=== PATIENT | female | born 1970 | race Caucasian/White ===

== ENCOUNTER 2019-03-03 17:20 | Outpatient (RCR) | payer OTHER, SELFPAY ==
--- NOTE | 2019-03-12 11:16 | PCPTNOTE ---
03/12/2019 Juanito Cuevas cancelled her appt today due to work. LJ
--- NOTE | 2019-03-26 10:07 | PCPTNOTE ---
03/26/19 - patient called an cancelled appointment this date due to having to take her mother to the doctor. MUKUND
--- NOTE | 2019-06-03 08:46 | PCPTNOTE ---
06/03/19 - patient has not been to therapy in several weeks or months. patient has been called and no return calls have been made to finish out the POC. as of this date, patient will be DC'd from skilled PT and all progress towards goals will be taken from the most recent evaluation/note. MUKUND
== END 2019-04-14 23:59 | disposition home or self-care (01) ==
LOC: CHSPT 17:20
PROVIDERS: PCP Internal Medicine; Visit Provider Internal Medicine
DX: M25.512 Pain in left shoulder (principal)
CPT/HCPCS: 97014; 97110; G0283

== ENCOUNTER 2019-08-04 09:46 | Outpatient (CLI) | payer OTHER, SELFPAY ==
[2019-08-04 10:00] LABS: Add Urine Microscopic? YES; Appearance Urine Cloudy (Clear); Bilirubin Urine Negative (Negative); Blood Urine Negative (Negative); Color Urine Yellow (Yellow); Glucose Urine UA Negative (Negative); Ketones Urine Negative (Negative); Leukocyte Esterase Ur Trace (Negative); Nitrate Urine Positive (Negative); Protein Urine Negative (Negative); Urobilinogen Urine 0.2 mg/dL (0.2-1.0)
[2019-08-04 10:01] LABS: RBC Urine 0-2 /hpf (0-2); Squamous Epithelial Cell Urine Few /hpf (Few); WBC Urine 21-30 /hpf (0-3)
[2019-08-04 10:02] LABS: Bacteria Urine 4+ /hpf
== END 2019-08-04 09:47 | disposition home or self-care (01) ==
PROVIDERS: PCP Internal Medicine; Visit Provider Internal Medicine
DX: N39.0 Urinary tract infection, site not specified (principal)
CPT/HCPCS: 81001; 87077; 87086; 87088; 87186

== ENCOUNTER 2019-11-04 09:07 | Outpatient (CLI) | payer OTHER, SELFPAY ==
--- NOTE | ~2019-11-04 | MR_ITS ---
EXAMINATION: MR shoulder LT wo con DATE: 11/04/2019 11:37 INDICATION: Left shoulder pain TECHNIQUE: Magnetic resonance imaging (MRI) of the left shoulder was performed without intravenous co ntrast. Sequences included axial PD-weighted FS FSE, coronal oblique PD-weighted FS FSE, coronal obli que T2-weighted FS FSE, sagittal PD-weighted FS FSE, and sagittal T1-weighted SE. COMPARISON: None. FINDINGS: Coracoacromial arch: The acromion undersurface is curved in morphology (type II). The coracoacromial ligament is normal. M ild acromioclavicular osteoarthritis with minimal subarticular changes at the posterior inferior aspe ct of the lateral head of the clavicle. Rotator cuff: The supraspinatus, infraspinatus and teres minor tendons are normal. The subscapularis tendon is norm al. Normal rotator cuff muscle bulk and signal. Biceps tendon, glenoid labrum and glenohumeral cartilage: Long head of the biceps tendon is normal. Glenoid labrum is normal. Normal anterosuperior sublingual foramen. Glenohumeral cartilage is normal. Fluid: Physiologic amount of fluid in the glenohumeral joint and biceps tendon sheath. No loose osteochondra l bodies. No abnormal fluid signal at the subacromial/subdeltoid bursa to suggest bursitis. Bones: Normal marrow signal with no edema, fracture or abnormal marrow replacing process. IMPRESSION: 1. Mild acromioclavicular osteoarthritis. Otherwise normal left shoulder MRI. Reviewed, dictated and finalized at location A.
== END 2019-11-04 09:08 | disposition home or self-care (01) ==
LOC: CHSIMG 09:09
PROVIDERS: PCP Internal Medicine; Visit Provider Internal Medicine
DX: M25.512 Pain in left shoulder (principal)
CPT/HCPCS: 73221

== ENCOUNTER 2019-11-13 11:09 | Outpatient (RCR) | payer OTHER, SELFPAY ==
--- NOTE | 2019-11-13 11:43 | PTOPEVAL ---
Thank you for referring Juanito Cuevas to [facility] [place]. Please review, sign, date and return this plan of care [facility]. I agree with and certify that the following plan of care is medically necessary. Referring Physician Date Admitting Provider: Attending Provider: Ramesh Delong MD Referring Provider: *PT Outpatient Evaluation Start: 11/13/19 11:09 Freq: Status: Active Protocol: Document 11/13/19 11:10 J (Rec: 11/13/19 11:35 [facility] [id number]) Therapy Assessment Status Assessment Status Assessment Status Evaluation Evaluation Information Problem Diagnosis L frozen shoulder Onset 10/27/19 Additional Evaluation Detail quick dash = 54% Subjective Information patient reports she has been Query Text:As Reported By Patient/ having continued pain and Family decraesing ROM of the L shoulder since 2018. she reports she has recently been back to her MD who took and MRI of the L shoulder and was referred to physical therapy. she reports she has arthritis of the L shoulder. she reports she has increased pain with reaching behind her back to take off a shirt or jacket. she reports she feels she is unable to reach back behind her and then it is painful. she reports she is unable to reach over her head. Prior Level of Function Comments Additional Prior Level of Function patient is still working in Comments the ER. she reports she is mostly limited in mobility and reaching overhead/behind back . patient reports she has been experiencing symptoms for 2 years. however, prior to 2018, no pain or decreased functional mobility/use of the L shoulder/UE. Pain Assessment Timing of Pain Assessment Timing of Pain Assessment Assessment Pain Scale Pain Scale Used Numeric (1 - 10) Self Report Pain Assessment Left Shoulder(s) Reported Pain Level 0 Pain Description Sharp,Stabbing Lowest Pain Intensity 0 Greatest Pain Intensity 10 Pain Aggravating Factors Changing Position,Exercise/ Activity,Lifting Pain Scor
== END 2020-01-13 09:13 | disposition home or self-care (01) ==
LOC: CHSPT 11:09
PROVIDERS: PCP Internal Medicine; Visit Provider Internal Medicine
DX: M75.01 Adhesive capsulitis of right shoulder (principal)
CPT/HCPCS: 97014; 97110; 97161; G0283

== ENCOUNTER 2019-11-21 08:03 | Outpatient (CLI) | payer OTHER, SELFPAY ==
--- NOTE | ~2019-11-21 | US_ITS ---
EXAMINATION: US right upper quadrant DATE: 11/21/2019 08:41 INDICATION: Right upper quadrant abdominal pain. TECHNIQUE: Multiple grayscale and Doppler ultrasound images of the abdomen were obtained. COMPARISON: None FINDINGS: The visualized portions of the head and body of the pancreas are normal. The liver is fidencio l without focal lesion. There is normal flow in main portal vein. There are gallstones in the gallbla dder, which is normal in size. No gallbladder wall thickening or sonographic Villegas sign. The common duct is normal and measures 5 mm. IMPRESSION: 1. Cholelithiasis. No evidence of acute cholecystitis. Reviewed, dictated and finalized at location A.
[2019-11-21 08:30] LABS: Hematocrit 33.2 % (35.0-49.0); Hemoglobin 10.6 g/dL (12.0-15.0); Mean Corpuscular HGB Conc 31.9 g/dL (32.0-36.0); Mean Corpuscular Hemoglobin 27.7 pg (27.0-31.0); Mean Corpuscular Volume 86.9 fL (78.0-102.0); Platelet Count Result 342 K/mm3 (150-420); Red Blood Count 3.82 M/mm3 (4.20-5.40); White Blood Count 6.8 K/mm3 (4.8-10.8)
[2019-11-21 09:20] LABS: Band Neutrophils Percent 0 % (0-6); Basophils Absolute Manual 0.06 K/mm3 (0-0.1); Basophils Percent Manual 1 % (0-1); Eosinophils Absolute Manual 0.61 K/mm3 (0.02-0.5); Eosinophils Percent Manual 9 % (1-6); Lymphocytes Absolute Manual 2.65 K/mm3 (1.1-4.5); Lymphocytes Percent Manual 39 % (18-44); Monocytes Absolute Manual 0.34 K/mm3 (0.1-0.90); Monocytes Percent Manual 5 % (3-9); Neutrophils Absolute Manual 3.12 K/mm3 (1.7-7.2); Neutrophils Percent Manual 46 % (46-73); Platelet Estimate Adequate (Adequate); Total Cells Counted 100
[2019-11-21 10:30] LABS: Alanine Aminotransferase 16 U/L (14-59); Albumin Level 3.2 g/dL (3.4-5.0); Alkaline Phosphatase 66 U/L (46-116); Anion Gap 10.2 mmol/L (7-16); Aspartate Amino Transferase 17 U/L (15-37); Bilirubin,Total 0.6 mg/dL (0.00-1.00); Blood Urea Nitrogen 14 mg/dL (7-18); Calcium 8.7 mg/dL (8.5-10.1); Carbon Dioxide 29 mmol/L (21-32); Chloride 105 mmol/L (98-108); Estimated Glomerular Filt Rate > 60; Ferritin 9 ng/mL (8-252); Glucose 86 mg/dL (70-99); Iron 37 ug/dL (50-170); Osmolality Calculated 289 mOsm/kg (285-295); Potassium 4.2 mmol/L (3.5-5.1); Sodium 140 mmol/L (136-145); Thyroid Stimulating Hormone 1.52 uIU/mL (0.36-3.74); Total Protein 6.6 g/dL (6.4-8.2); Vitamin B12 358 pg/mL (193-986)
[2019-11-26 19:25] LABS: Vitamin D 25 Hydroxy 34 ng/mL (30-100)
[2019-11-29 10:52] LABS: Vitamin B1 6 nmol/L (8-30)
== END 2019-11-21 08:04 | disposition home or self-care (01) ==
PROVIDERS: PCP Internal Medicine
DX: R10.11 Right upper quadrant pain (principal); R63.4 Abnormal weight loss; R53.83 Other fatigue; L65.9 Nonscarring hair loss, unspecified; R61 Generalized hyperhidrosis; D64.9 Anemia, unspecified
CPT/HCPCS: 36415; 76705; 80053; 82306; 82607; 82728; 82746; 83540; 84425; 84443; 85025

== ENCOUNTER 2019-12-11 06:25 | Outpatient (CLI) | payer OTHER, SELFPAY ==
--- NOTE | ~2019-12-11 | XR_ITS ---
EXAMINATION: XR chest 2V DATE: 12/11/2019 07:09 INDICATION: Dyspnea on exertion TECHNIQUE: PA and lateral views of the chest were obtained. COMPARISON: Chest radiograph dated 07/29/18 and 01/28/2014 FINDINGS: Unchanged subtle opacity at the left lung base which on the lateral projection appears to correspond to a small paracardial fat pad. No other airspace opacities, pulmonary edema, pleural effusion or pne umothorax. The cardiomediastinal silhouette is normal. There are bridging osteophytes at multiple lev els in the spine, consistent with diffuse idiopathic skeletal hyperostosis (DISH). IMPRESSION: 1. No acute cardiopulmonary disease. Reviewed, dictated and finalized at location A.
--- NOTE | 2019-12-11 06:45 | ECG_ITS ---
Measurements Intervals [place] Rate: 48 P: 65 OR: 166 QRS: -47 QRSD: 138 T: 43 QT: 520 QTc: 465 Interpretive Statements SINUS BRADYCARDIA RIGHT BUNDLE BRANCH BLOCK LEFT ANTERIOR FASCICULAR BLOCK BASELINE ARTIFACT- II, III, AVF ABNORMAL ECG Electronically Signed On 12-11-2019 7:10:57 CDT by Iban Carter D.O.
[2019-12-11 07:06] LABS: Partial Thromboplastin Time 28.1 SEC (22.3-31.6); Prothrombin Time 10.8 Seconds (9.64-11.0)
== END 2019-12-11 06:26 | disposition home or self-care (01) ==
PROVIDERS: PCP Internal Medicine
DX: K44.9 Diaphragmatic hernia without obstruction or gangrene (principal); K80.10 Calculus of gallbladder with chronic cholecystitis without obstruction
CPT/HCPCS: 36415; 71046; 85610; 85730; 93005

== ENCOUNTER 2019-12-12 10:25 | Outpatient (CLI) | payer OTHER, SELFPAY ==
[2019-12-12 22:36] LABS: SARS-CoV-2 RNA PCR Negative
== END 2019-12-12 10:26 | disposition home or self-care (01) ==
PROVIDERS: PCP Internal Medicine; Visit Provider Internal Medicine
DX: Z20.828 Contact with and (suspected) exposure to other viral communicable diseases (principal)
CPT/HCPCS: 87635; C9803; U0003

== ENCOUNTER 2019-12-19 15:32 | Outpatient (CLI) | payer OTHER, SELFPAY ==
[2019-12-20 14:58] LABS: SARS-CoV-2 RNA PCR Negative
== END 2019-12-19 15:33 | disposition home or self-care (01) ==
PROVIDERS: PCP Internal Medicine
DX: Z20.828 Contact with and (suspected) exposure to other viral communicable diseases (principal)
CPT/HCPCS: 87635; C9803; U0003

== ENCOUNTER 2020-03-08 09:02 | Outpatient (CLI) | payer OTHER, SELFPAY ==
[2020-03-08 09:47] LABS: Basophils Absolute Auto 0.08 K/mm3 (0.00-0.10); Basophils Percent Auto 1.1 % (0.0-1.0); Eosinophils Absolute Auto 0.57 K/mm3 (0.02-0.50); Eosinophils Percent Auto 8.1 % (1.0-6.0); Hematocrit 34.6 % (35.0-49.0); Hemoglobin 10.6 g/dL (12.0-15.0); Immature Granulocyte Absolute 0.02 K/mm3 (0.00-0.00); Immature Granulocyte Percent A 0.3 % (0.0-0.0); Lymphocytes Absolute Auto 2.04 K/mm3 (1.10-4.50); Lymphocytes Percent Auto 28.9 % (18.0-42.0); Mean Corpuscular HGB Conc 30.6 g/dL (32.0-36.0); Mean Corpuscular Hemoglobin 25.2 pg (27.0-31.0); Mean Corpuscular Volume 82.4 fL (78.0-102.0); Mean Platelet Volume 9.6 fl (9.2-11.8); Monocytes Absolute Auto 0.66 K/mm3 (0.10-0.90); Monocytes Percent Auto 9.3 % (2.0-11.0); Neutrophils Absolute Auto 3.7 K/mm3 (1.7-7.2); Neutrophils Percent Auto 52.3 % (50.0-70.0); Platelet Count Result 386 K/mm3 (150-420); White Blood Count 7.1 K/mm3 (4.8-10.8)
[2020-03-08 10:46] LABS: Alanine Aminotransferase 26 U/L (14-59); Albumin Level 3.4 g/dL (3.4-5.0); Alkaline Phosphatase 83 U/L (46-116); Anion Gap 9 mmol/L (8-16); Aspartate Amino Transferase 20 U/L (15-37); Bilirubin,Total 0.5 mg/dL (0.00-1.00); Blood Urea Nitrogen 14 mg/dL (7-18); Calcium 8.8 mg/dL (8.5-10.1); Carbon Dioxide 28 mmol/L (21-32); Chloride 104 mmol/L (98-108); Estimated Glomerular Filt Rate > 60; Ferritin 7 ng/mL (8-252); Glucose 87 mg/dL (70-99); Iron 26 ug/dL (50-170); Osmolality Calculated 291 mOsm/kg (285-295); Potassium 4.2 mmol/L (3.5-5.1); Sodium 141 mmol/L (136-145); Total Protein 7.1 g/dL (6.4-8.2); Vitamin B12 466 pg/mL (193-986)
[2020-03-08 11:12] LABS: Folic Acid > 20.0 ng/mL (8.6->20)
[2020-03-08 11:16] LABS: Thyroid Stimulating Hormone Reflex 2.32 u/IU/mL (0.36-3.74)
[2020-03-10 19:35] LABS: Vitamin D 25 Hydroxy 34 ng/mL (30-100)
[2020-03-11 10:47] LABS: Vitamin B1 14 nmol/L (8-30)
== END 2020-03-08 09:03 | disposition home or self-care (01) ==
PROVIDERS: PCP Internal Medicine
DX: R63.4 Abnormal weight loss (principal); R61 Generalized hyperhidrosis; L65.9 Nonscarring hair loss, unspecified; E66.01 Morbid (severe) obesity due to excess calories; D64.9 Anemia, unspecified; K91.2 Postsurgical malabsorption, not elsewhere classified; Z98.84 Bariatric surgery status
CPT/HCPCS: 36415; 80053; 82306; 82607; 82728; 82746; 83540; 84425; 84443; 85025

== ENCOUNTER 2020-04-03 10:26 | Outpatient (CLI) | payer OTHER, SELFPAY ==
[2020-04-03 11:12] LABS: SARS-CoV-2 Ag Positive (Negative)
== END 2020-04-03 10:27 | disposition home or self-care (01) ==
LOC: CHSLAB 10:28
PROVIDERS: PCP Internal Medicine; Visit Provider Emergency Medicine
DX: U07.1 COVID-19 (principal)
CPT/HCPCS: 87426

== ENCOUNTER 2020-04-28 10:39 | Outpatient (CLI) | payer OTHER, SELFPAY ==
--- NOTE | ~2020-04-28 | XR_ITS ---
EXAMINATION: XR chest 2V EXAM DATE: 04/28/2020 12:57 INDICATION: Cough and shortness of breath, COVID+ ON 04/02 . TECHNIQUE: Frontal and lateral projections of the chest obtained and reviewed. Comparison is made to prior examination from 12/11/2019. FINDINGS: The lungs are clear. There are no pleural effusions. The cardiomediastinal silhouette is within normal limits. There is no pneumothorax suspected. The bones and soft tissues are unremarkab le. IMPRESSION: No acute cardiopulmonary findings. Reviewed, dictated and finalized at location B. WOOD FLOOR REFINISHER
--- NOTE | ~2020-04-28 | CT_ITS ---
EXAMINATION: CTA chest PE protocol DATE: 04/28/2020 15:18 INDICATION: Shortness of breath. Elevated D-dimer. TECHNIQUE: Computed tomography angiography (CTA) of the chest was performed with 100 mL Omnipaque-350 intravenous contrast timed to evaluate the pulmonary arteries. Coronal maximum intensity projection 3D-reconstructions were created by the technologist. Automated exposure control and iterative reconst ruction technique were employed. Exam dose: 339.87 mGy-cm total exam DLP. COMPARISON: None. FINDINGS: There is diagnostic contrast enhancement of the pulmonary arteries and no evidence of pulmo nary embolism. No thoracic aortic aneurysm. Normal heart size. No pericardial or pleural effusion. No hilar or mediastinal mass lesion or lymphadenopathy. No pulmonary infiltrate or consolidation or pulmonary mass lesion is detected. Status post cholecystectomy. Normal morphology of the adrenal glands. Small sliding hiatal hernia. Postoperative change of the stomach. Diffuse idiopathic skeletal hyperostosis of the thoracic and upper lumbar spine. No suspicious osteolytic or osteoblastic lesions. IMPRESSION: No evidence of pulmonary embolism Small sliding hiatal hernia Postoperative change of the stomach Status post cholecystectomy Reviewed, dictated and finalized at Location A. Reviewed, dictated and finalized at location A. OL VOCATIONAL EDUCATOR
[2020-04-28 12:51] LABS: Base Excess ABG -3.8 mmol/L (0-2); Basophils Absolute Auto 0.06 K/mm3 (0.00-0.10); Basophils Percent Auto 0.9 % (0.0-1.0); Eosinophils Percent Auto 4.3 % (1.0-6.0); HCO3 ABG 20.1 mmol/L (23-29); Hematocrit 34.1 % (35.0-49.0); Hemoglobin 10.5 g/dL (12.0-15.0); Immature Granulocyte Absolute 0.04 K/mm3 (0.00-0.00); Immature Granulocyte Percent A 0.6 % (0.0-0.0); Lymphocytes Absolute Auto 1.92 K/mm3 (1.10-4.50); Lymphocytes Percent Auto 27.2 % (18.0-42.0); Mean Corpuscular HGB Conc 30.8 g/dL (32.0-36.0); Mean Corpuscular Hemoglobin 25.5 pg (27.0-31.0); Mean Corpuscular Volume 82.8 fL (78.0-102.0); Mean Platelet Volume 9.5 fl (9.2-11.8); Monocytes Absolute Auto 1.06 K/mm3 (0.10-0.90); Neutrophils Absolute Auto 3.7 K/mm3 (1.7-7.2); Oxygen Content ABG 16.2 %vol (16.0-22.0); Oxygen Saturation ABG 97.9 % (95-97); Oxyhemoglobin 97.5 % (94-100); PCO2 ABG 32.6 mmHg (35-45); PO2 ABG 104.7 mmHg (80-90); Platelet Count Result 365 K/mm3 (150-420); Red Blood Count 4.12 M/mm3 (4.20-5.40); Red Cell Distribution Width 15.9 % (11.6-14.4); Total Hemoglobin 11.7 g/dL; White Blood Count 7.1 K/mm3 (4.8-10.8); pH ABG 7.41 (7.35-7.45)
[2020-04-28 12:52] LABS: Device ROOM AIR; Modified Allen's Test Pass; Site Drawn LEFT RADIAL
[2020-04-28 13:06] LABS: Alanine Aminotransferase 28 U/L (14-59); Albumin Level 3.3 g/dL (3.4-5.0); Alkaline Phosphatase 102 U/L (46-116); Anion Gap 9 mmol/L (8-16); Aspartate Amino Transferase 22 U/L (15-37); Bilirubin,Total 0.2 mg/dL (0.00-1.00); Blood Urea Nitrogen 14 mg/dL (7-18); Calcium 8.8 mg/dL (8.5-10.1); Carbon Dioxide 26 mmol/L (21-32); Chloride 103 mmol/L (98-108); Estimated Glomerular Filt Rate > 60; Glucose 114 mg/dL (70-99); Osmolality Calculated 287 mOsm/kg (285-295); Potassium 3.8 mmol/L (3.5-5.1); Sodium 138 mmol/L (136-145); Total Protein 7.9 g/dL (6.4-8.2)
[2020-04-28 13:29] LABS: D Dimer 0.66 mg/L (0.19-0.50)
== END 2020-04-28 10:40 | disposition home or self-care (01) ==
PROVIDERS: PCP Internal Medicine; Visit Provider Internal Medicine
DX: R06.02 Shortness of breath (principal); R05 Cough; R79.1 Abnormal coagulation profile
CPT/HCPCS: 36415; 36600; 71046; 71275; 80053; 82805; 85025; 85380; Q9965; Q9967

== ENCOUNTER 2020-06-17 13:58 | Outpatient (CLI) | payer OTHER, SELFPAY ==
[2020-06-17 14:09] LABS: Basophils Absolute Auto 0.07 K/mm3 (0.00-0.10); Basophils Percent Auto 0.8 % (0.0-1.0); Eosinophils Absolute Auto 0.59 K/mm3 (0.02-0.50); Hematocrit 33.2 % (35.0-49.0); Hemoglobin 10.4 g/dL (12.0-15.0); Immature Granulocyte Absolute 0.02 K/mm3 (0.00-0.00); Immature Granulocyte Percent A 0.2 % (0.0-0.0); Lymphocytes Absolute Auto 2.53 K/mm3 (1.10-4.50); Lymphocytes Percent Auto 30.2 % (18.0-42.0); Mean Corpuscular HGB Conc 31.3 g/dL (32.0-36.0); Mean Corpuscular Hemoglobin 25.7 pg (27.0-31.0); Mean Corpuscular Volume 82.2 fL (78.0-102.0); Mean Platelet Volume 9.5 fl (9.2-11.8); Monocytes Absolute Auto 0.46 K/mm3 (0.10-0.90); Monocytes Percent Auto 5.5 % (2.0-11.0); Neutrophils Absolute Auto 4.7 K/mm3 (1.7-7.2); Neutrophils Percent Auto 56.3 % (50.0-70.0); Platelet Count Result 348 K/mm3 (150-420); Red Blood Count 4.04 M/mm3 (4.20-5.40); Red Cell Distribution Width 15.4 % (11.6-14.4); White Blood Count 8.4 K/mm3 (4.8-10.8)
[2020-06-17 14:13] LABS: Add Urine Microscopic? NO; Appearance Urine Clear (Clear); Bilirubin Urine Negative (Negative); Blood Urine Negative (Negative); Color Urine Yellow (Yellow); Glucose Urine UA Negative (Negative); Ketones Urine Negative (Negative); Leukocyte Esterase Ur Negative LEU/UL (Negative); Nitrate Urine Negative (Negative); Protein Urine Negative (Negative); Specific Grav Ur >= 1.030 (1.010-1.020); Urobilinogen Urine 0.2 mg/dL (0.2-1.0); pH Urine 5.5 (5.0-8.0)
[2020-06-17 14:31] LABS: BNP 113 pg/mL (0-100)
[2020-06-17 15:55] LABS: Alanine Aminotransferase 34 U/L (14-59); Albumin Level 3.4 g/dL (3.4-5.0); Alkaline Phosphatase 85 U/L (46-116); Anion Gap 10 mmol/L (8-16); Aspartate Amino Transferase 18 U/L (15-37); Bilirubin,Total 0.4 mg/dL (0.00-1.00); Blood Urea Nitrogen 12 mg/dL (7-18); Calcium 8.8 mg/dL (8.5-10.1); Carbon Dioxide 28 mmol/L (21-32); Chloride 106 mmol/L (98-108); Estimated Glomerular Filt Rate > 60; Glucose 100 mg/dL (70-99); Osmolality Calculated 297 mOsm/kg (285-295); Sodium 144 mmol/L (136-145); Thyroid Stimulating Hormone 1.95 uIU/mL (0.36-3.74); Total Protein 6.9 g/dL (6.4-8.2)
[2020-06-17 16:05] LABS: CRP < 0.2 mg/dL (0.0-0.9)
[2020-06-20 16:07] LABS: FSH 115.6 mIU/mL (***); LH 40.5 mIU/mL (***)
[2020-06-27 19:09] LABS: Estrogen 68.7 pg/mL
== END 2020-06-17 13:59 | disposition home or self-care (01) ==
LOC: CHSLAB 13:59
PROVIDERS: PCP Internal Medicine; Visit Provider Internal Medicine
DX: R60.9 Edema, unspecified (principal); I10 Essential (primary) hypertension; R94.6 Abnormal results of thyroid function studies
CPT/HCPCS: 36415; 80053; 81003; 82672; 83001; 83002; 83880; 84443; 85025; 86140

== ENCOUNTER 2020-07-26 07:53 | Outpatient (CLI) | payer OTHER, SELFPAY ==
--- NOTE | ~2020-07-26 | MM_ITS ---
EXAMINATION: MM screening traci BI w saul HISTORY: Screening mammogram TECHNIQUE: Craniocaudal and mediolateral oblique 3-D tomosynthesis images were obtained and synthetic 2-D images were generated. CAD analysis was submitted and interpreted. COMPARISON: 02/07/2019, 10/15/2017, 09/14/2015 BREAST PARENCHYMAL COMPOSITION: There are scattered areas of fibroglandular density. FINDINGS: RIGHT BREAST: There is no evidence of suspicious mass, calcification, or architectural distortion to suggest malignancy. There has been no significant interval change. LEFT BREAST: There is possible architectural distortion in the posterior third of the outer breast be st appreciated 11 cm from the nipple on the craniocaudal view. There is a stable mass of the inner l eft breast with biopsy change. IMPRESSION: 1. Possible left breast architectural distortion. 2. Additional mammographic views and possible breast ultrasound are recommended. BI-RADS Category 0: Incomplete: Needs additional imaging evaluation. Reviewed, dictated and finalized at location A. IMPRESSION: 1. Possible left breast architectural distortion. 2. Additional mammographic views and possible breast ultrasound are recommended . BI-RADS Category 0: Incomplete: Needs additional imaging evaluation.
== END 2020-07-26 07:54 | disposition home or self-care (01) ==
LOC: CHSIMG 07:55
PROVIDERS: PCP Internal Medicine; Visit Provider Internal Medicine
DX: Z12.31 Encounter for screening mammogram for malignant neoplasm of breast (principal)
CPT/HCPCS: 77063; 77067

== ENCOUNTER 2020-07-31 06:39 | Outpatient (CLI) | payer OTHER, SELFPAY ==
[2020-07-31 08:22] LABS: SARS-CoV-2 RNA PCR Negative (Negative)
== END 2020-07-31 06:40 | disposition home or self-care (01) ==
LOC: CHSLAB 06:42
PROVIDERS: PCP Internal Medicine Gastroenterology; Visit Provider Internal Medicine Gastroenterology
DX: U07.1 COVID-19 (principal)
CPT/HCPCS: C9803; U0003; U0005

== ENCOUNTER 2020-08-04 01:29 | Day surgery (SDC) | payer OTHER, SELFPAY ==
[2020-06-30 15:16] VITALS: BMI 34.8
[2020-07-21 14:54] VITALS: BMI 34.8
[2020-08-04 10:01] VITALS: BP 116/74; PULSE 58; RESP 18; TEMP 35.9; O2SAT 100; BMI 34.3
[2020-08-04] MEDS: LACTATED RINGERS 1,000 ML 150 ML IV CONT (10:06)
--- NOTE | 2020-08-04 10:37 | P.PNAN_ITS ---
Anes - Initial Pre Proc Eval Procedure: Operation Date: 08/04/20 11:00 Proposed Procedures p Colonoscopy - Joel Simpson MD Date/Time: 08/04/20 10:37 Surgeon: Joel Simpson MD Pre Op Diagnosis: CHAGO Patient Data Age: 50 Gender: F Height: 5 ft 4 in Weight: 90.7 kg Last Vital Signs Temp 96.6 F L 08/04/20 10:01 Pulse 58 L 08/04/20 10:01 Resp 18 08/04/20 10:01 BP 116/74 08/04/20 10:01 Pulse Ox 100 08/04/20 10:01 Allergies Allergy/AdvReac Type Severity Reaction Status Date / Time No Known Allergies Allergy Verified 08/04/20 09:58 Home Medications Medication Instructions Recorded Confirmed Type dexlansoprazole [Dexilant] 60 mg PO DAILY 06/30/20 08/04/20 History escitalopram oxalate 5 mg PO DAILY 06/30/20 08/04/20 History norethindrone ac-eth estradiol 1 tablet PO DAILY 06/30/20 08/04/20 History [Jinteli] spironolactone 50 mg PO DAILY 06/30/20 08/04/20 History Patient hx anesthesia problems: none Family hx anesthesia problems: none [facility] Past Medical History Medical History (Updated 08/04/20 @ 10:37 by Jean Mehta MD) Asthma Colon cancer screening Diabetes Hypothyroid Social History Social History Smoking status: Never smoker Alcohol intake: current Alcohol use details: 1 PER MONTH Substance use: never Substance use type: does not use Living arrangements: with family Spiritual care concerns: No Anes - Eval Final PreProcedure Day of Procedure 08/04/20 10:37 Patient weight: obese Heart: regular rate and rhythm Lungs: clear to auscultation Airway: Mallampati scale class II Neurological: alert and oriented Last oral intake: >/= 8 hours ASA classification: III Emergent: no Anesthetic plan: proceed Anesthesia type and monitoring: general GIVS and standard monitoring Informed Consent: The patient's anesthetic plan and its attendant risks and benefits were discussed with the patient/family/POA. Questions were solicited and answers provided to the satisfaction of the patient/family/POA.
--- NOTE | 2020-08-04 10:54 | PM.HPGS ---
History of Present Illness History of Present Illness Consent: Risks, benefits, and alternatives have been discussed and questions answered. Patient agrees to proceed with procedure. Chief complaint: CHAGO Narrative: Juanito Cuevas is a 50 year old female with CHAGO, had egd 11/2019 (also h/o gastric sleeve), denies overt gib but never had a colonoscopy Review of Systems Constitutional: Constitutional: Denies headache(s) and Denies weakness Eyes: Eyes: Denies blurry vision ENT: Reports Normal hearing present, Denies headache(s) and Denies neck pain Cardiovascular: Cardiovascular: Denies chest pain and Denies dyspnea Respiratory: Respiratory: Denies dyspnea Gastrointestinal: Gastrointestinal: Reports no additional gastrointestinal complaints Genitourinary: Genitourinary: Denies dysuria Musculoskeletal: Musculoskeletal: Denies neck pain Integumentary/Breasts: Skin/Breast: Denies dry skin Neurologic: Reports Normal hearing present, Denies headache(s) and Denies weakness Psychiatric: Psychiatric: Denies anxiety Endocrine: Endocrine: Denies change in body appearance Hematologic/Lymphatic: Hematologic/Lymphatic: Denies easy bleeding Allergic/Immunologic: Allergic/Immunologic: Denies urticaria PMFSH Past Medical History Medical History (Updated 08/04/20 @ 10:55 by Joel Simpson MD) Asthma Colon cancer screening Diabetes Hypothyroid Iron deficiency anemia Social History Social History Smoking status: Never smoker Alcohol intake: current Alcohol use details: 1 PER MONTH Substance use: never Substance use type: does not use Living arrangements: with family Spiritual care concerns: No Meds Home Medications and Allergies Home Medications Medication Instructions Recorded Confirmed Type dexlansoprazole [Dexilant] 60 mg PO DAILY 06/30/20 08/04/20 History escitalopram oxalate 5 mg PO DAILY 06/30/20 08/04/20 History norethindrone ac-eth estradiol 1 tablet PO DAILY 06/30/20 08/04/20 History [Jinteli] spironolactone 50 mg PO DAILY 06/30/20 08/04/20 History Allergies Allergy/AdvReac Type Severity Reaction Status Date / Time No Known Allergies Allergy Verified 08/04/20 09:58 Vital Signs Vital Signs - 24 hr 08/04/20 10:01 Temperature 96.6 F L Pulse Rate 58 L Respiratory Rate 18 Blood Pressure 116/74 Pulse Oximetry 100 Exam Const: General: comfortable and no acute distress HENMT: General nose exam: Normal nares present Eyes: General: appearance normal, both eyes and all related structures Neck: Neck: no JVD Resp: Auscultation: clear to auscultation bilaterally Cardio: Rate: regular rate Rhythm: regular rhythm GI: Inspection: non-distended GI Palp: Yes Soft to palpation Skin: General skin exam: normal color Neuro: General: gait normal Speech: normal speech Extrem: General: normal to inspection Psych: Mental Status: mental status grossly normal Assessment and Plan Assessment and plan (1) Iron deficiency anemia: Code(s): D50.9 - Iron deficiency anemia, unspecified Status: Acute Assessment and Plan: on iron, also dexilant for gerd (2) Colon cancer screening: Code(s): Z12.11 - Encounter for screening for malignant neoplasm of colon Status: Acute Assessment and Plan: colonoscopy
[2020-08-04 11:16] VITALS: BP 114/75; PULSE 60; RESP 18; O2SAT 100
[2020-08-04 11:26] VITALS: BP 113/66; PULSE 51; RESP 15; O2SAT 100
[2020-08-04 11:36] VITALS: BP 115/63; PULSE 52; RESP 17; O2SAT 100
== END 2020-08-04 11:40 | disposition home or self-care (01) ==
PROVIDERS: PCP Internal Medicine; Visit Provider Internal Medicine Gastroenterology
PROC: 0DJD8ZZ Inspection of Lower Intestinal Tract, Via Natural or Artificial Opening Endoscopic (ICD-10-PCS; CPT 45378; principal; 2020-08-04 11:00)
DX: Z12.11 Encounter for screening for malignant neoplasm of colon (principal); K64.8 Other hemorrhoids; D50.9 Iron deficiency anemia, unspecified; J45.909 Unspecified asthma, uncomplicated; E11.9 Type 2 diabetes mellitus without complications; E03.9 Hypothyroidism, unspecified; E66.9 Obesity, unspecified; Z68.34 Body mass index [BMI] 34.0-34.9, adult
CPT/HCPCS: 45378; J2704; J7120

== ENCOUNTER 2020-08-26 08:58 | Outpatient (CLI) | payer OTHER, SELFPAY ==
--- NOTE | ~2020-08-26 | MM_ITS ---
EXAMINATION: MM diagnostic traci LT w saul HISTORY: Possible left breast architectural distortion suggested in posterior third of outer breast 1 1 cm from nipple on screening craniocaudal view of 07/26/2020 TECHNIQUE: Additional 3-D tomosynthesis images of the left breast were performed and synthetic 2-D im ages were generated. CAD analysis was submitted and interpreted. COMPARISON: 07/26/2020 bilateral digital screening mammogram FINDINGS: No suspicious mass or architectural distortion is noted in the posterior outer left breast at the area questioned on the initial screening craniocaudal view of 07/26/2020. Stable anterior upper inner quadrant left breast mass as previously noted, with adjacent biopsy marke r IMPRESSION: 1. No mammographic evidence of malignancy 2. Routine annual mammographic screening is recommended BI-RADS Category 2: Benign finding(s). Reviewed, dictated and finalized at location A.
== END 2020-08-26 08:59 | disposition home or self-care (01) ==
LOC: CHSIMG 09:00
PROVIDERS: PCP Internal Medicine; Visit Provider Internal Medicine
DX: R92.8 Other abnormal and inconclusive findings on diagnostic imaging of breast (principal)
CPT/HCPCS: 77061; 77065; G0279

== ENCOUNTER 2020-08-27 11:56 | Outpatient (CLI) | payer OTHER, SELFPAY ==
[2020-08-27 13:52] LABS: Basophils Percent Auto 1.2 % (0.0-1.0); Eosinophils Absolute Auto 0.44 K/mm3 (0.02-0.50); Eosinophils Percent Auto 5.3 % (1.0-6.0); Hematocrit 35.9 % (35.0-49.0); Immature Granulocyte Absolute 0.02 K/mm3 (0.00-0.00); Immature Granulocyte Percent A 0.2 % (0.0-0.0); Lymphocytes Absolute Auto 2.13 K/mm3 (1.10-4.50); Lymphocytes Percent Auto 25.8 % (18.0-42.0); Mean Corpuscular HGB Conc 30.6 g/dL (32.0-36.0); Mean Corpuscular Hemoglobin 25.1 pg (27.0-31.0); Mean Platelet Volume 9.7 fl (9.2-11.8); Monocytes Absolute Auto 0.54 K/mm3 (0.10-0.90); Monocytes Percent Auto 6.5 % (2.0-11.0); Platelet Count Result 414 K/mm3 (150-420); Red Blood Count 4.38 M/mm3 (4.20-5.40); Red Cell Distribution Width 16.5 % (11.6-14.4); White Blood Count 8.3 K/mm3 (4.8-10.8)
[2020-08-27 14:34] LABS: Alanine Aminotransferase 21 U/L (14-59); Albumin Level 3.2 g/dL (3.4-5.0); Alkaline Phosphatase 78 U/L (46-116); Anion Gap 9 mmol/L (8-16); Aspartate Amino Transferase 17 U/L (15-37); Bilirubin,Total 0.4 mg/dL (0.00-1.00); Blood Urea Nitrogen 14 mg/dL (7-18); Calcium 9.1 mg/dL (8.5-10.1); Carbon Dioxide 27 mmol/L (21-32); Chloride 103 mmol/L (98-108); Estimated Glomerular Filt Rate 58; Ferritin 8 ng/mL (8-252); Glucose 100 mg/dL (70-99); NT Pro B Type Natriuretic Pept 278 pg/mL (0-125); Osmolality Calculated 288 mOsm/kg (285-295); Potassium 4.2 mmol/L (3.5-5.1); Sodium 139 mmol/L (136-145); Total Protein 7.4 g/dL (6.4-8.2)
== END 2020-08-27 11:57 | disposition home or self-care (01) ==
PROVIDERS: PCP Internal Medicine; Visit Provider Internal Medicine
DX: D64.9 Anemia, unspecified (principal); R06.00 Dyspnea, unspecified
CPT/HCPCS: 36415; 80053; 82728; 83880; 85025

== ENCOUNTER 2020-10-05 15:29 | Outpatient (CLI) | payer OTHER, SELFPAY ==
[2020-10-05 15:42] LABS: Basophils Absolute Auto 0.05 K/mm3 (0.00-0.10); Basophils Percent Auto 0.6 % (0.0-1.0); Eosinophils Absolute Auto 0.34 K/mm3 (0.02-0.50); Hematocrit 37.6 % (35.0-49.0); Hemoglobin 12.1 g/dL (12.0-15.0); Immature Granulocyte Absolute 0.03 K/mm3 (0.00-0.00); Immature Granulocyte Percent A 0.4 % (0.0-0.0); Lymphocytes Absolute Auto 2.95 K/mm3 (1.10-4.50); Lymphocytes Percent Auto 35.1 % (18.0-42.0); Mean Corpuscular HGB Conc 32.2 g/dL (32.0-36.0); Mean Corpuscular Hemoglobin 26.1 pg (27.0-31.0); Mean Corpuscular Volume 81.2 fL (78.0-102.0); Monocytes Absolute Auto 0.76 K/mm3 (0.10-0.90); Neutrophils Absolute Auto 4.3 K/mm3 (1.7-7.2); Neutrophils Percent Auto 50.9 % (50.0-70.0); Platelet Count Result 413 K/mm3 (150-420); Red Blood Count 4.63 M/mm3 (4.20-5.40); Red Cell Distribution Width 16.6 % (11.6-14.4); White Blood Count 8.4 K/mm3 (4.8-10.8)
[2020-10-05 16:42] LABS: Alanine Aminotransferase 29 U/L (14-59); Albumin Level 3.4 g/dL (3.4-5.0); Alkaline Phosphatase 88 U/L (46-116); Anion Gap 11 mmol/L (8-16); Aspartate Amino Transferase 22 U/L (15-37); Bilirubin,Total 0.5 mg/dL (0.00-1.00); Blood Urea Nitrogen 15 mg/dL (7-18); CRP 1.7 mg/dL (0.0-0.9); Calcium 9.2 mg/dL (8.5-10.1); Carbon Dioxide 26 mmol/L (21-32); Chloride 104 mmol/L (98-108); Estimated Glomerular Filt Rate 55; GGT 68 U/L (5-55); Glucose 87 mg/dL (70-99); Osmolality Calculated 291 mOsm/kg (285-295); Potassium 4.4 mmol/L (3.5-5.1); Sodium 141 mmol/L (136-145); Thyroid Stimulating Hormone 2.66 uIU/mL (0.36-3.74); Total Protein 7.4 g/dL (6.4-8.2)
== END 2020-10-05 15:30 | disposition home or self-care (01) ==
PROVIDERS: PCP Internal Medicine; Visit Provider Internal Medicine
DX: L29.9 Pruritus, unspecified (principal)
CPT/HCPCS: 36415; 80053; 82977; 84443; 85025; 86140

== ENCOUNTER 2020-10-08 07:17 | Outpatient (CLI) | payer OTHER, SELFPAY ==
--- NOTE | ~2020-10-08 | US_ITS ---
EXAMINATION: US right upper quadrant EXAM DATE: 10/08/2020 08:15 INDICATION: Cholestasis . TECHNIQUE: Multiple grayscale and Doppler images of the abdomen right upper quadrant were obtained (b y a technologist who performed the scan) and subsequently reviewed. Comparison is made to prior exami nation from 11/21/2019. FINDINGS: The pancreatic head and body are normal in appearance. The pancreatic tail is not visualized. The l iver has normal echogenicity and contour. There are no focal liver lesions identified. There is no evidence of intrahepatic biliary duct dilation. Portal venous flow was seen in the hepatopedal, nor mal direction and has normal Doppler waveform. No right-sided hydronephrosis. Common bile duct measures 4 mm, which is normal. The gallbladder fossa is unremarkable. IMPRESSION: 1. Unremarkable abdominal ultrasound exam. Reviewed, dictated and finalized at location A.
== END 2020-10-08 07:18 | disposition home or self-care (01) ==
LOC: CHSIMG 07:18
PROVIDERS: PCP Internal Medicine; Visit Provider Internal Medicine
DX: K83.1 Obstruction of bile duct (principal)
CPT/HCPCS: 76705

== ENCOUNTER 2021-01-11 06:27 | Outpatient (CLI) | payer OTHER, SELFPAY ==
--- NOTE | ~2021-01-11 | US_ITS ---
EXAMINATION: US pelvic complete w TV DATE: 01/11/2021 08:09 INDICATION: Right pelvic pain Comparison:No prior studies for comparison. TECHNIQUE: Multiple transabdominal and endovaginal sonographic images of the pelvis performed. FINDINGS: The uterus measures 6 x 3.9 x 4.5 cm. There is a hypoechoic mass of the myometrium containi ng calcifications measuring 3.7 x 3.3 x 3 cm, compatible with a fibroid. The endometrial complex galilea ures 6 mm. The ovaries are not visualized, due to overlying bowel. There is no free fluid in the pelvis. There are no abnormal masses seen on either side. IMPRESSION: 1. Uterine fibroid measuring 3.7 cm. Reviewed, dictated and finalized at location A.
== END 2021-01-11 06:28 | disposition home or self-care (01) ==
LOC: CHSIMG 06:30
PROVIDERS: PCP Internal Medicine; Visit Provider Obstetrics & Gynecology
DX: R10.2 Pelvic and perineal pain (principal)
CPT/HCPCS: 76830; 76856

== ENCOUNTER 2021-03-31 07:37 | Outpatient (CLI) | payer OTHER, SELFPAY ==
--- NOTE | ~2021-03-31 | US_ITS ---
EXAMINATION: US pelvic complete w TV DATE: 03/31/2021 09:00 INDICATION: Pelvic pain Comparison:Ultrasound dated 01/11/2021 TECHNIQUE: Multiple transabdominal and endovaginal sonographic images of the pelvis performed. FINDINGS: The uterus measures 5.9 x 4.2 x 4.7 cm. There is a fibroid containing calcifications measur ing 3.5 x 2.9 x 3 cm. The endometrium is not distinguished for measurement. The right ovary measures 2.2 x 1.2 x 1.3 cm and the left ovary is not visualized. There are small fol licles in each ovary. Normal doppler signal in both ovaries. There is no free fluid in the pelvis. There are no abnormal masses seen on either side. IMPRESSION: 1. Uterine fibroid measuring 3.5 cm maximum dimension. 2: Endometrium not identified for measurement. Reviewed, dictated and finalized at location B. ING TUTOR
== END 2021-03-31 07:38 | disposition home or self-care (01) ==
LOC: CHSIMG 07:45
PROVIDERS: PCP Internal Medicine; Visit Provider Obstetrics & Gynecology
DX: R10.2 Pelvic and perineal pain (principal); R93.89 Abnormal findings on diagnostic imaging of other specified body structures; D25.9 Leiomyoma of uterus, unspecified
CPT/HCPCS: 76830; 76856

== ENCOUNTER 2021-04-05 08:31 | Outpatient (CLI) | payer OTHER, SELFPAY ==
--- NOTE | 2021-04-05 11:00 | NEURO_ITS ---
Impression: # Complains of numbness of hands. # Bilateral Carpal Tunnel Syndrome, right more than left. # No ulnar neuropathy. # Normal needle/EMG exam. Nerve Conduction Studies Anti Sensory Summary Table Stim Site NR Peak (ms) P-T Amp (?V) Site1 Site2 Delta-P (ms) Dist (cm) Chapo (m/s) Left Median Anti Sensory (2-3nd Digit) Wrist 4.3 45.3 Wrist 2-3nd Digit 4.3 14.0 33 Wrist 4.2 80.0 Wrist 2-3nd Digit 4.3 14.0 33 Right Median Anti Sensory (2-3nd Digit) Wrist 4.4 43.4 Wrist 2-3nd Digit 4.4 14.0 32 Wrist 4.6 60.2 Wrist 2-3nd Digit 4.4 14.0 32 Left Radial Anti Sensory (Base 1st Digit) Wrist 2.2 37.6 Wrist Base 1st Digit 2.2 0.0 Right Radial Anti Sensory (Base 1st Digit) Wrist 2.1 33.8 Wrist Base 1st Digit 2.1 0.0 Left Ulnar Anti Sensory (5th Digit) Wrist 2.8 57.7 Wrist 5th Digit 2.8 14.0 50 Right Ulnar Anti Sensory (5th Digit) Wrist 2.8 34.8 Wrist 5th Digit 2.8 14.0 50 Motor Summary Table Stim Site NR Onset (ms) O-P Amp (mV) Site1 Site2 Delta-0 (ms) Dist (cm) Chapo (m/s) Left Median Motor (Abd Poll Brev) Wrist 4.2 3.4 Elbow Wrist 5.1 29.0 57 Elbow 9.3 1.5 Right Median Motor (Abd Poll Brev) Wrist 4.8 3.2 Elbow Wrist 5.0 27.0 54 Elbow 9.8 2.2 Left Ulnar Motor (Abd Dig Minimi) Wrist 2.5 9.1 A Elbow Wrist 4.7 27.0 57 A Elbow 7.2 8.2 Right Ulnar Motor (Abd Dig Minimi) Wrist 2.7 9.8 A Elbow Wrist 4.8 28.0 58 A Elbow 7.5 10.0 F Wave Studies NR F-Lat (ms) L-R F-Lat (ms) Left Median (Mrkrs) (Abd Poll Brev) 29.92 0.39 Right Median (Mrkrs) (Abd Poll Brev) 30.31 0.39 Left Ulnar (Mrkrs) (Abd Dig Min) 29.69 0.00 Right Ulnar (Mrkrs) (Abd Dig Min) 29.69 0.00 EMG Side Muscle Nerve Root Ins Act Fibs Amp Dur Recrt Comment Right 1stDorInt Ulnar C8-T1 Nml Nml Nml Nml Nml Right Ext Indicis Radial (Post Int) C7-8 Nml Nml Nml Nml Nml Right Ext Digitorum Radial (Post Int) C7-8 Nml Nml Nml Nml Nml Right BrachioRad Radial C5-6 Nml Nml Nml Nml Nml Right PronatorTeres Median C6-7 Nml Nml Nml Nml Nml Right Abd Poll Brev Median C8-T1 Nml Nml Nml Nml Nml Left 1stDorInt Ulnar C8-T1 Nml Nml Nml Nml Nml Left Ext Indicis Radial (Post Int) C7-8 Nml Nml Nml Nml Nml Left Ext Digitorum Radial (Post Int) C7-8 Nml Nml Nml Nml Nml Left BrachioRad Radial C5-6 Nml Nml Nml Nml Nml Left PronatorTeres Median C6-7 Nml Nml Nml Nml Nml Left Abd Poll Brev Median C8-T1 Nml Nml Nml Nml Nml Right ABD Dig Min Ulnar C8-T1 Nml Nml Nml Nml Nml Left ABD Dig Min Ulnar C8-T1 Nml Nml Nml Nml Nml MTDD
== END 2021-04-05 08:32 | disposition home or self-care (01) ==
LOC: ANHNEURO 08:34
PROVIDERS: PCP Internal Medicine; Visit Provider Plastic Surgery
DX: R20.0 Anesthesia of skin (principal); G56.03 Carpal tunnel syndrome, bilateral upper limbs
CPT/HCPCS: 95886; 95911

== ENCOUNTER 2021-05-24 11:07 | Outpatient (CLI) | payer OTHER, SELFPAY ==
[2021-05-26 14:26] LABS: NIL 0.01 IU/mL; Quantiferon TB Plus, 1T NEGATIVE (NEGATIVE)
== END 2021-05-24 11:08 | disposition home or self-care (01) ==
LOC: CHSLAB 11:09
PROVIDERS: PCP Internal Medicine; Visit Provider Internal Medicine
DX: Z11.1 Encounter for screening for respiratory tuberculosis (principal); Z13.89 Encounter for screening for other disorder
CPT/HCPCS: 36415; 86480; 86787

== ENCOUNTER 2021-07-27 06:06 | Outpatient (CLI) | payer OTHER, SELFPAY ==
[2021-07-27 06:29] LABS: Hematocrit 41.2 % (35.0-49.0); Hemoglobin 12.9 g/dL (12.0-15.0); Mean Corpuscular HGB Conc 31.3 g/dL (32.0-36.0); Mean Corpuscular Hemoglobin 27.6 pg (27.0-31.0); Mean Platelet Volume 9.3 fl (9.2-11.8); Platelet Count Result 391 K/mm3 (150-420); Red Blood Count 4.68 M/mm3 (4.20-5.40); White Blood Count 8.7 K/mm3 (4.8-10.8)
[2021-07-27 06:57] LABS: Band Neutrophils Percent 0 % (0-6); Basophils Absolute Manual 0.08 K/mm3 (0-0.1); Basophils Percent Manual 1 % (0-1); Eosinophils Absolute Manual 0.95 K/mm3 (0.02-0.5); Eosinophils Percent Manual 11 % (1-6); Lymphocytes Absolute Manual 3.39 K/mm3 (1.1-4.5); Lymphocytes Percent Manual 39 % (18-44); Monocytes Absolute Manual 0.78 K/mm3 (0.1-0.90); Monocytes Percent Manual 9 % (3-9); Neutrophils Absolute Manual 3.48 K/mm3 (1.7-7.2); Neutrophils Percent Manual 40 % (46-73); Platelet Estimate Adequate (Adequate); Total Cells Counted 100
[2021-07-27 07:27] LABS: Alanine Aminotransferase 27 U/L (14-59); Albumin Level 3.5 g/dL (3.4-5.0); Alkaline Phosphatase 127 U/L (46-116); Anion Gap 8 mmol/L (8-16); Aspartate Amino Transferase 26 U/L (15-37); Bilirubin,Total 0.4 mg/dL (0.00-1.00); Blood Urea Nitrogen 14 mg/dL (7-18); Calcium 8.9 mg/dL (8.5-10.1); Carbon Dioxide 28 mmol/L (21-32); Chloride 105 mmol/L (98-108); Cholesterol 147 mg/dL (0-200); Estimated Glomerular Filt Rate > 60; Glucose 106 mg/dL (70-99); HDL Direct 102 mg/dL (40-60); LDL Cholesterol Calculated 30 mg/dL (<130); Magnesium 1.5 mg/dL (1.8-2.4); Osmolality Calculated 292 mOsm/kg (285-295); Phosphorus 3.9 mg/dL (2.6-4.7); Sodium 141 mmol/L (136-145); Total Protein 6.9 g/dL (6.4-8.2); Triglycerides 73 mg/dL (0-150); Vitamin B12 678 pg/mL (193-986)
[2021-07-27 11:30] LABS: Hemoglobin A1C 5.5 % (<5.7)
[2021-07-27 12:15] LABS: Add Urine Microscopic? NO; Appearance Urine Clear (Clear); Bilirubin Urine Negative (Negative); Blood Urine Negative (Negative); Color Urine Yellow (Yellow); Glucose Urine UA Negative (Negative); Ketones Urine Negative (Negative); Leukocyte Esterase Ur Negative (Negative); Nitrate Urine Negative (Negative); Protein Urine Negative (Negative); Specific Grav Ur 1.015 (1.010-1.020); Urobilinogen Urine 0.2 mg/dL (0.2-1.0)
[2021-07-30 05:22] LABS: Zinc 76 mcg/dL (60-130)
[2021-07-31 08:19] LABS: Red Blood Cell Folate 578 ng/mL RBC (>280)
[2021-07-31 11:09] LABS: Vitamin D 1,25 (OH)2 Total 41 pg/mL (18-72); Vitamin D2 1,25 (OH)2 <8 pg/mL; Vitamin D3 1,25 (OH)2 41 pg/mL
[2021-08-02 11:45] LABS: Parathyroid Intact 32 pg/mL (14-64)
[2021-08-03 14:24] LABS: Vitamin D 25 Hydroxy 44 ng/mL (30-100)
== END 2021-07-27 06:07 | disposition home or self-care (01) ==
LOC: CHSLAB 06:08
PROVIDERS: PCP Internal Medicine; Visit Provider Internal Medicine
DX: Z00.00 Encounter for general adult medical examination without abnormal findings (principal); R25.2 Cramp and spasm; Z98.84 Bariatric surgery status; R73.9 Hyperglycemia, unspecified
CPT/HCPCS: 36415; 80053; 80061; 81003; 82306; 82607; 82652; 82747; 83036; 83735; 83970; 84100; 84630; 85025

== ENCOUNTER 2021-12-22 06:11 | Outpatient (CLI) | payer OTHER, SELFPAY ==
[2021-12-22 06:34] LABS: Basophils Absolute Auto 0.06 K/mm3 (0.00-0.10); Basophils Percent Auto 0.7 % (0.0-1.0); Eosinophils Absolute Auto 0.68 K/mm3 (0.02-0.50); Eosinophils Percent Auto 8.1 % (1.0-6.0); Hemoglobin 12.2 g/dL (12.0-15.0); Immature Granulocyte Absolute 0.03 K/mm3 (0.00-0.00); Immature Granulocyte Percent A 0.4 % (0.0-0.0); Lymphocytes Absolute Auto 2.56 K/mm3 (1.10-4.50); Lymphocytes Percent Auto 30.5 % (18.0-42.0); Mean Corpuscular HGB Conc 32.1 g/dL (32.0-36.0); Mean Corpuscular Hemoglobin 27.5 pg (27.0-31.0); Mean Corpuscular Volume 85.8 fL (78.0-102.0); Mean Platelet Volume 9.4 fl (9.2-11.8); Monocytes Absolute Auto 0.62 K/mm3 (0.10-0.90); Monocytes Percent Auto 7.4 % (2.0-11.0); Neutrophils Absolute Auto 4.4 K/mm3 (1.7-7.2); Neutrophils Percent Auto 52.9 % (50.0-70.0); Platelet Count Result 344 K/mm3 (150-420); Red Blood Count 4.43 M/mm3 (4.20-5.40); Red Cell Distribution Width 13.5 % (11.6-14.4); White Blood Count 8.4 K/mm3 (4.8-10.8)
[2021-12-22 07:09] LABS: Hemoglobin A1C 5.6 % (<5.7)
[2021-12-22 07:49] LABS: Alanine Aminotransferase 22 U/L (14-59); Albumin Level 3.5 g/dL (3.4-5.0); Alkaline Phosphatase 111 U/L (46-116); Anion Gap 7 mmol/L (8-16); Aspartate Amino Transferase 22 U/L (15-37); Bilirubin,Total 0.6 mg/dL (0.00-1.00); Blood Urea Nitrogen 19 mg/dL (7-18); Calcium 9.2 mg/dL (8.5-10.1); Carbon Dioxide 27 mmol/L (21-32); Chloride 104 mmol/L (98-108); Estimated Glomerular Filt Rate > 60; Ferritin 10 ng/mL (8-252); Folic Acid 19.4 ng/mL (8.6->20); Glucose 92 mg/dL (70-99); Iron 61 ug/dL (50-170); Osmolality Calculated 288 mOsm/kg (285-295); Potassium 4.2 mmol/L (3.5-5.1); Sodium 138 mmol/L (136-145); Total Protein 7.1 g/dL (6.4-8.2); Vitamin B12 516 pg/mL (193-986)
[2021-12-22 07:50] LABS: Thyroid Stimulating Hormone Reflex 3.03 u/IU/mL (0.36-3.74)
[2021-12-25 05:46] LABS: Cortisol Random 24.3 mcg/dL (***)
[2021-12-26 12:28] LABS: Insulin Level Total 5.3 uIU/mL (<=19.6)
[2021-12-26 19:10] LABS: Vitamin D 25 Hydroxy 43 ng/mL (30-100)
== END 2021-12-22 06:12 | disposition home or self-care (01) ==
LOC: CHSLAB 06:13
PROVIDERS: PCP Internal Medicine; Visit Provider Surgery
DX: R63.4 Abnormal weight loss (principal); R53.83 Other fatigue; E66.01 Morbid (severe) obesity due to excess calories; L65.9 Nonscarring hair loss, unspecified; D64.9 Anemia, unspecified; K91.2 Postsurgical malabsorption, not elsewhere classified; Z98.84 Bariatric surgery status; Z13.818 Encounter for screening for other digestive system disorders; R61 Generalized hyperhidrosis
CPT/HCPCS: 36415; 80053; 82306; 82533; 82607; 82728; 82746; 83036; 83525; 83540; 84425; 84443; 85025

== ENCOUNTER 2022-12-15 10:07 | Outpatient (CLI) | payer OTHER, SELFPAY ==
[2022-12-15 10:56] LABS: Basophils Absolute Auto 0.05 K/mm3 (0.00-0.10); Basophils Percent Auto 0.8 % (0.0-1.0); Eosinophils Absolute Auto 0.63 K/mm3 (0.02-0.50); Eosinophils Percent Auto 9.9 % (1.0-6.0); Hematocrit 41.9 % (35.0-49.0); Hemoglobin 13.4 g/dL (12.0-15.0); Immature Granulocyte Absolute 0.02 K/mm3 (0.00-0.00); Immature Granulocyte Percent A 0.3 % (0.0-0.0); Lymphocytes Absolute Auto 1.98 K/mm3 (1.10-4.50); Mean Corpuscular Volume 90.7 fL (78.0-102.0); Mean Platelet Volume 9.7 fl (9.2-11.8); Monocytes Absolute Auto 0.52 K/mm3 (0.10-0.90); Monocytes Percent Auto 8.1 % (2.0-11.0); Neutrophils Absolute Auto 3.2 K/mm3 (1.7-7.2); Neutrophils Percent Auto 49.9 % (50.0-70.0); Platelet Count Result 345 K/mm3 (150-420); Red Blood Count 4.62 M/mm3 (4.20-5.40); Red Cell Distribution Width 12.8 % (11.6-14.4); White Blood Count 6.4 K/mm3 (4.8-10.8)
[2022-12-15 10:57] LABS: Alanine Aminotransferase 12 U/L (14-59); Albumin Level 3.6 g/dL (3.4-5.0); Alkaline Phosphatase 107 U/L (46-116); Anion Gap 9 mmol/L (8-16); Aspartate Amino Transferase 21 U/L (15-37); Bilirubin,Total 0.5 mg/dL (0.00-1.00); Blood Urea Nitrogen 15 mg/dL (7-18); Calcium 9.3 mg/dL (8.5-10.1); Carbon Dioxide 29 mmol/L (21-32); Chloride 105 mmol/L (98-108); Cholesterol 147 mg/dL (0-200); Estimated Glomerular Filt Rate > 60; Glucose 72 mg/dL (70-99); HDL Direct 108 mg/dL (40-60); LDL Cholesterol Calculated 27 mg/dL (<130); Osmolality Calculated 295 mOsm/kg (285-295); Potassium 4.3 mmol/L (3.5-5.1); Sodium 143 mmol/L (136-145); Thyroid Stimulating Hormone 1.48 uIU/mL (0.36-3.74); Total Protein 7.3 g/dL (6.4-8.2); Triglycerides 60 mg/dL (0-150)
[2022-12-15 10:58] LABS: Appearance Urine Clear (Clear); Bilirubin Urine Negative (Negative); Blood Urine Negative (Negative); Color Urine Light Yellow (Yellow); Glucose Urine UA Negative (Negative); Ketones Urine Negative (Negative); Leukocyte Esterase Ur Negative (Negative); Nitrate Urine Negative (Negative); Protein Urine Negative (Negative); Specific Grav Ur >= 1.030 (1.010-1.020); Urobilinogen Urine 0.2 mg/dL (0.2-1.0)
[2022-12-15 11:03] LABS: Add Urine Microscopic? NO
[2022-12-19 13:54] LABS: CRP < 0.5 mg/dL (0.0-0.9)
[2022-12-19 14:02] LABS: Rheumatoid Factor Screen Negative (Negative)
== END 2022-12-15 10:08 | disposition home or self-care (01) ==
LOC: CHSLAB 10:09
PROVIDERS: PCP Internal Medicine; Visit Provider Internal Medicine
DX: Z00.00 Encounter for general adult medical examination without abnormal findings (principal); M25.50 Pain in unspecified joint; R21 Rash and other nonspecific skin eruption
CPT/HCPCS: 36415; 80053; 80061; 81003; 84443; 85025; 86038; 86039; 86140; 86430

== ENCOUNTER 2022-12-19 12:09 | Outpatient (CLI) | payer OTHER, SELFPAY | END 2022-12-19 12:10 | disposition home or self-care (01) | PROVIDERS: PCP Internal Medicine; Visit Provider Nurse Practitioner Family | DX: Z01.419 Encounter for gynecological examination (general) (routine) without abnormal findings (principal); N76.0 Acute vaginitis; R21 Rash and other nonspecific skin eruption; Z11.51 Encounter for screening for human papillomavirus (HPV) | CPT/HCPCS: 36415; 81513; 87070; 87075; 87147; 87186; 87205; 87481; 87491; 87591; 87624; 87661; 88141; 88175; G0145 ==

== ENCOUNTER 2022-12-20 08:54 | Outpatient (CLI) | payer OTHER, SELFPAY ==
--- NOTE | ~2022-12-20 | MM_ITS ---
EXAMINATION: MM screening traci BI w saul HISTORY: Screening TECHNIQUE: Craniocaudal and mediolateral oblique 3-D tomosynthesis images were obtained and synthetic 2-D images were generated. CAD analysis was submitted and interpreted. COMPARISON: 08/26/2020 diagnostic left mammogram 07/26/2020 bilateral screening mammogram 02/07/2019 bilateral screening mammogram BREAST PARENCHYMAL COMPOSITION: There are scattered areas of fibroglandular density. FINDINGS: Stable low-density circumscribed approximately 2 x 3 x 3 x 5 mm opacity in the anteromedial left subareolar area, with biopsy marker; this was reportedly benign. No suspicious mass or architectural distortion, malignant calcification, skin thickening or retractio n or significant new or developing density of either breast is detected. There is no evidence of susp icious mass, calcification, or architectural distortion to suggest malignancy in either breast. There has been no suspicious interval change. IMPRESSION: 1. No mammographic evidence of malignancy. 2. Recommend routine screening mammography in one year. BI-RADS Category 2: Benign finding(s). Reviewed, dictated and finalized at location A.
== END 2022-12-20 08:55 | disposition home or self-care (01) ==
LOC: CHSIMG 08:55
PROVIDERS: PCP Internal Medicine; Visit Provider Internal Medicine
DX: Z12.31 Encounter for screening mammogram for malignant neoplasm of breast (principal)
CPT/HCPCS: 77063; 77067

== ENCOUNTER 2023-03-26 13:00 | Outpatient (CLI) | payer OTHER, SELFPAY ==
[2023-03-28 13:49] LABS: NIL 0.03 IU/mL; Quantiferon TB Plus, 1T NEGATIVE (NEGATIVE); TB1-NIL 0.01 IU/mL; TB2-NIL 0.01 IU/mL
== END 2023-03-26 13:01 | disposition home or self-care (01) ==
LOC: CHSLAB 13:01
PROVIDERS: PCP Family Medicine; Visit Provider Family Medicine
DX: Z77.21 Contact with and (suspected) exposure to potentially hazardous body fluids (principal)
CPT/HCPCS: 36415; 86480

== ENCOUNTER 2024-06-16 08:11 | Emergency (ER) | payer OTHER, SELFPAY ==
[2024-06-16 08:11] VITALS: BP 153/93; PULSE 60; RESP 16; TEMP 36.5; O2SAT 98
[2024-06-16] MEDS: TETRACAINE HCL 0.5% OPHTH SOLN 4 ML BTL 1 DROP EACH EYE (08:35)
[2024-06-16] MEDS: DACRIOSE EYE IRRIGATION 118 ML BOTTLE EACH EYE (08:35)
[2024-06-16] MEDS: FLUORESCEIN SOD 1 MG/STRIP EACH EYE (08:35)
--- NOTE | 2024-06-16 08:48 | ED.EYEPROB ---
HPI - Eye Problem General Chief complaint: Eye Problems Stated complaint: eye Time Seen by Provider: 06/16/24 08:19 Source: patient Mode of arrival: ambulatory Limitations: no limitations History of Present Illness HPI Narrative: Patient is a 53-year-old female with significant past medical history that presents today with something in her right eye. She feels like something is in her right eye feels very gritty and [place]. She is not sure something is in there but it feels like something is stuck in the eye. chief complaint: foreign body Onset (ago): day(s) Onset description: gradual Duration: constant Location: right eye Eye Symptoms: burning, redness and foreign body sensation Place: home Severity: mild If Pain, Quality: burning Associated symptoms: none Treatments Prior to Arrival: none Related Data Home Medications ?Medication ?Instructions ?Recorded ?Confirmed ?Last Taken ?Type dexlansoprazole 60 mg 60 mg PO DAILY 06/30/20 01/05/21 08/03/20 History capsule,biphase delayed release (Dexilant) escitalopram oxalate 5 mg tablet 5 mg PO DAILY 06/30/20 01/05/21 08/03/20 History spironolactone 50 mg tablet 50 mg PO DAILY 06/30/20 01/05/21 08/03/20 History bariatric calcium PO 01/05/21 01/05/21 Unknown History ughnfrxw-hvesapmc-pmly 45 mg-folic cap PO 01/05/21 01/05/21 Unknown History acid 800 mcg-vit K 120 mcg capsule (Bariatric Multivitamins) Allergies Allergy/AdvReac Type Severity Reaction Status Date / Time No Known Allergies Allergy Verified 06/16/24 08:17 Review of Systems Review of Systems: All systems reviewed & are unremarkable except as noted in HPI and below Constitutional: Constitutional: Reports as per HPI Eyes: Eyes: Reports no additional eye complaints ENT: Reports as per HPI Cardiovascular: Cardiovascular: Reports no additional cardiovascular complaints Respiratory: Respiratory: Reports no additional respiratory complaints Gastrointestinal: Gastrointestinal: Reports no additional gastrointestinal complaints Genitourinary: Genitourinary: Reports no additional female genitourinary complaints Musculoskeletal: Musculoskeletal: Reports no additional musculoskeletal complaints Integumentary/Breasts: Skin/Breast: Reports system reviewed and no additional complaints, except as docu Neurologic: Reports system reviewed and no additional complaints, except as documented Psychiatric: Psychiatric: Reports no additional psychiatric complaints Endocrine: Endocrine: Reports no additional endocrine complaints Hematologic/Lymphatic: Hematologic/Lymphatic: Reports no additional hematologic/lymphatic complaints Allergic/Immunologic: Allergic/Immunologic: Reports no additional allergic/immunologic complaints [facility] Past Medical History Medical History Depression Hypertension Chronic GERD Iron deficiency anemia Surgical History Surgical History History of cholecystectomy 11/2019 History of toe surgery 1981, bilateral History of repair of hiatal hernia 11/2019 History of esophagogastroduodenoscopy (EGD) 12/09/19 History of endometrial ablation 04/02/18 History of bilateral tubal ligation 04/21/16 S/P gastric surgery 02/24/14, gastric sleeve History of tonsillectomy Family History Family History Father Alcoholism Factor 5 Leiden mutation, heterozygous Mother Asthma Hypertension Depression Anxiety Thyroid disorder Sibling Anxiety Depression Thyroid disorder Grandparent Asthma Cancer Diabetes mellitus Hypertension Heart problem Cerebrovascular accident Social History Social History Smoking status: Never smoker Alcohol intake: current Drinks per week: 2 Alcohol use details: 1 PER MONTH Substance use: never Living arrangements: with family Spiritual care concerns: No Exam Const: General: healthy appearing Nutritional Appearance: well nourished Orientation/consciousness: patient oriented x3 HENMT: Head: normal to inspection Ears: external ears normal Face/Nose/Sinus: Normal external nose present Face and sinus: normal facial exam Mouth: Yes Normal oral and palatal mucosa present Eyes: Conjunctivae: conjunctival abnormality ( erythema) right Pupils: Equal, round and reactive pupils present EOM: EOMs intact bilaterally Neck: Neck: normal visual inspection Chest: Chest palpation & inspection: normal inspection of the chest Resp: Effort & Inspection: normal respiratory effort Auscultation: clear to auscultation bilaterally Cardio: Rate: regular rate Rhythm: regular rhythm GI: Auscultation: normal bowel sounds Rectal Exam: normal sphincter tone Back/Spine/Pelvis: Back: no CVA tenderness Skin: General skin exam: normal color Rashes: no rashes Wounds: no wounds Neuro: General: patient oriented x3 Cranial nerves: Yes Nystagmus not present Speech: normal speech Extrem: General: normal to inspection Psych: Mental Status: mental status grossly normal Affect: normal affect Course Vital Signs Vital signs: Vital Signs Temperature 97.7 F 06/16/24 08:11 Pulse Rate 60 06/16/24 08:11 Respiratory Rate 16 06/16/24 08:11 Blood Pressure 153/93 H 06/16/24 08:11 Pulse Oximetry 98 06/16/24 08:11 Oxygen Delivery Room Air 06/16/24 08:11 Temperature 97.7 F 06/16/24 08:11 Pulse Rate 60 06/16/24 08:11 Respiratory Rate 16 06/16/24 08:11 Blood Pressure 153/93 H 06/16/24 08:11 Pulse Oximetry 98 06/16/24 08:11 Oxygen Delivery Room Air 06/16/24 08:11 MDM - Eye Problem MDM Narrative Medical decision making narrative: most likely there is a 4 mm stuck in the eye. Please slough seen and a new likely and look for foreign object. Will see his denture can to numb the eye. And with early uremia I needed to shaking was able to 4 L a foreign object. Most likely the eye is scratch from the foreign object. Will prescribe Polytrim eyedrops to prevent infection. Differential Diagnosis Differential diagnosis: Likely conjunctivitis and other ( scratched sclera) Medical Records Attestation: I reviewed the patient's medical records. Lab Data Attestation: I reviewed the patient's lab results. Discharge Plan Discharge Clinical Impression: Conjunctivitis, Foreign body in eye Patient Disposition: Home, Self-Care Condition: Stable Instructions: How to Use Eye Drops (ED), Eye Foreign Body (ED) Additional Instructions: use Polytrim eyedrops as instructed. can also use saline eyedrops To keep the eye moist. Patient Language: Macedonian Prescriptions: New polymyxin B sulf-trimethoprim 10,000 unit- 1 mg/mL drops 1 drp RIGHT EYE Q3H 7 Days Qty: 10 0RF Rx Instructions: while awake; do not exceed 6 doses in 24 hours No Action Bariatric Multivitamins 45 mg iron- 800 mcg-120 mcg capsule PO bariatric calcium PO spironolactone 50 mg tablet 50 mg PO DAILY escitalopram oxalate 5 mg tablet 5 mg PO DAILY Dexilant 60 mg capsule,biphase delayed releas 60 mg PO DAILY Follow-up/Referrals: Ramesh Delong MD [Primary Care Provider] - Time of Disposition: 08:59
--- OUTSIDE RECORDS SUMMARY | 2024-06-16 11:13 | XMS_ITS | Clinical Summary ---
Author Organization [facility] Address [address] [place] [address] Care Team Providers Care Interior Designer Name Role Phone Ramesh Delong MD Primary Care Provider [phone] Bharat Evans MD Unavailable Unavailabl e Allergies No known active allergies Medications spironolactone 25 MG tablet spironolactone tablet 25 mg; take 1 tablet by mouth in the morning; 0; -May-2013; Active 4 Active escitalopram 5 MG tablet Take 5 mg by mouth daily. Active Active Problems Problem Noted Date Diagnosed Date Abnormal EKG 06/17/2017 Bradycardia Obesity Edema Dizziness Chronic back pain HTN (hypertension) Depression Social History Tobacco Use Types Packs/Day Years Used Date Smoking Tobacco: Never Smokeless Tobacco: Never Alcohol Use Standard Drinks/Week Comments No 0 (1 standard drink = 0.6 oz pur e alcohol) Comments Unknown Sex and Gender Information Value Date Recorded Sex Assigned at Not on file Legal Sex Female 5:10 PM CDT Gender Identity Not on file Sexual Orientation Not on file Last Filed Vital Signs Vital Sign Reading Time Taken Comments Blood Pressure 170/100 06/01/2017 10:45 AM CLAIM MANAGER Pulse 75 06/01/2017 10:45 AM CLAIM MANAGER Temperature - - Respiratory Rate 16 06/01/2017 10:45 AM CLAIM MANAGER Oxygen Saturation 100% 06/01/2017 10:45 AM CLAIM MANAGER Inhaled Oxygen Concentration - - Weight 86.6 kg (191 lb) 06/01/2017 10:45 AM CLAIM MANAGER Height 157.5 cm (5' 2 ) 06/01/2017 10:45 AM CLAIM MANAGER Body Mass Index 34.93 06/01/2017 10:45 AM CLAIM MANAGER Plan of Treatment Health Maintenance Due Date Last Done Comments Cervical Cancer Screening Pa p Smear (Age 30 to 64) Every 3 Years 1969 Colorectal Cancer Screening Colonoscopy (10 Years) 1969 Annual Physical 1972 Hepatitis C 08/04/1987 DTaP, Tdap and Td Vaccines ( 1 - Tdap) 1988 Hepatitis B Vaccines (1 of 3 - 19+ 3-dose series) 1988 Mammogram Screening 2009 Zoster Vaccines (1 of 2) 08/04/2019 COVID-19 Vaccine (1 - 2023-2 5 season) 2023 Influenza Adult (#1) 2024 Cervical Cancer Screening Pa p with HPV Testing (Age 30 to 64) Every 5 Years 12/20/2027 12/19/2022 Cervical Cancer Screening with HPV 12/20/2027 Meningococcal B Vaccine Aged Out No l onger eligible based on patient's age to complete this topic Meningococcal Vaccine Aged Out No skye brandan eligible based on patient's age to complete this topic Pneumococcal Vaccine: Pediat rics (0 to 5 Years) and At-Risk Patients (6 to 64 Years) Aged Out No longer eligi ble based on patient's age to complete this topic RSV Immunizations Under 20 Months Aged Out No longer eligible based on patient's age to complete this topic Procedures Procedure Name Priority Date/Time Associated Diagnosis Comments HUMAN PAPILLOMAVIRUS, HIGH-RISK TYPES Routine 12/19/2022 8:00 AM CDT from Last 3 Months or Most Recently Relevant to Health Maintenance Results * HUMAN PAPILLOMAVIRUS, HIGH-RISK TYPES (12/19/2022 8:00 AM CDT) SPEC DESCRIPTION CERVIX 12/23/19 23 2:54 PM CDT [facility] HPV DNA HIGH RISK NEGATIVE NEGATIVE 01/29/2023 8:07 PM CDT [facility] Comment:SEE CYTOLOGY REPORT 12/19/2022 8:00 AM CDT Mari Garcia NP PATHOLOGY/CYTOLOGY ORDERABLES Fi nal Result [facility] [address] [place] [address], from Last 3 Months or Most Recently Relevant to Health Maintenance Insurance [employer] Care Teams Interior Designer Relationship Specialty Start Date End Date Ramesh Delong MD [address] [place] [address] PCP - General INTERNAL MEDICINE 06/04/17 Bharat Evans MD [address] [place] [address] [place] [employer] Receiving Manager CARDIOVASCULAR DISEASE 06/04/17
--- OUTSIDE RECORDS SUMMARY | 2024-06-16 11:13 | XMS_ITS | Encounter Summary ---
Author Organization [facility] Address [address] [place] [address] Care Team Providers Care Lathe Winder Name Role Phone Ramesh Delong MD Primary Care Provider [phone] Bharat Evans MD Unavailable Unavailabl e Encounter Details Date Type Department Care Team (Late st Contact Info) Description 06/07/2017 Abstract [facility] [address] [place] [phone] Bharat Evans MD Social History Tobacco Use Types Packs/Day Years Used Date Smoking Tobacco: Never Smokeless Tobacco: Never Alcohol Use Standard Drinks/Week Comments No 0 (1 standard drink = 0.6 oz pur e alcohol) Comments Unknown Sex and Gender Information Value Date Recorded Sex Assigned at Not on file Legal Sex Female 5:10 PM CDT Gender Identity Not on file Sexual Orientation Not on file documented as of this encounter Plan of Treatment Not on file documented as of this encounter Procedures Procedure Name Priority Date/Time Associated Diagnosis Comments BASIC METABOLIC PANEL Routine 06/05/2017 documented in this encounter Results * BASIC METABOLIC PANEL (06/05/2017) SODIUM S/P/B 139 POTASSIUM S/P/B 4.1 CO2 28 CHLORIDE S/P/B 104 GLUCOSE 71 mg/dL CALCIUM S/P/B 8.8 BUN 19 CREATININE S/P/B 0.84 0.5 - 1.0 MAGNESIUM 1.8 06/05/2017 us Doc [facility] LABORATORY Final Result documented in this encounter Visit Diagnoses Not on filedocumented in this encounter Care Teams Lathe Winder Relationship Specialty Start Date End Date Ramesh Delong MD [address] [place] [phone] PCP - General INTERNAL MEDICINE 06/04/17 Bharat Evans MD [address] [place] [address] [place] [employer] Installer CARDIOVASCULAR DISEASE 06/04/17 documented as of this encounter
--- NOTE | 2024-06-16 14:10 | PC.NURSE ---
pt spoke with candelaria. states she is unable to open right eye due to the swelling. candelaria completed a work release and advises to f/u with ophthalmology.
== END 2024-06-16 09:05 | disposition home or self-care (01) ==
PROVIDERS: Emergency Provider Family Medicine; PCP Internal Medicine
DX: H10.9 Unspecified conjunctivitis (principal); T15.91XA Foreign body on external eye, part unspecified, right eye, initial encounter; W44.9XXA Unspecified foreign body entering into or through a natural orifice, initial encounter
CPT/HCPCS: 99283; A9270